=== PATIENT | male | born 1990 | race Caucasian/White ===

== ENCOUNTER → 2017-12-15 | Outpatient (REF) | payer OTHER | LOC: M SMT 13:51 | DX: Z30.09 Encounter for other general counseling and advice on contraception (principal) ==

== ENCOUNTER → 2018-11-25 | Outpatient (REF) ==
--- NOTE | 2018-11-25 11:01 | REP ---
Clinical: Right knee pain. Technique: AP, lateral, bilateral oblique and sunrise views of the right knee. Findings: Mild degenerative changes include increased sclerosis to the tibial plateau along with subtle early marginal spurring. Joint spaces appear relatively intact and normal. No acute fracture. No effusion. Impression: Mild degenerative changes. Electronically Signed by Raj Tim MD 11/25/2018 10:53 A
--- NOTE | 2018-11-25 11:33 | REP ---
LUMBOSACRAL SPINE: AP and lateral views of the lumbar spine performed with three total views obtained. No compression fracture or malalignment is seen. There is normal lumbar lordosis. Tiny spurs are seen of L1 and L5. There is slight disc space narrowing at L1-2. Questionable pars defect is seen at the L5 level on the lateral view. Mild vascular calcifications are seen of the distal abdominal aorta. IMPRESSION: Minor degenerative changes. Questionable pars defect at L5. Recommend oblique views of lumbar spine or CT to further evaluate. Electronically Signed by Chauncey Infante MD 11/25/2018 03:34 P
== END ==
LOC: M SMT 10:28
PROVIDERS: ATTEND Internal Medicine
DX: Z00.00 Encounter for general adult medical examination without abnormal findings (principal)

== ENCOUNTER → 2020-02-07 | Outpatient (REF) | payer OTHER | LOC: M SMT 16:45 | PROVIDERS: ATTEND Urology | DX: N45.1 Epididymitis (principal) ==

== ENCOUNTER 2022-11-22 09:59 | Day surgery (SDC) | payer BC, MEDICAID ==
[~2022-11-22] VITALS: Ht 160 cm; Wt 112.8 kg
[~2022-11-22 09:59] MED LIST: ASPI-226 PO; ATOR80TA59 PO; CARV12.5 PO; CARV25TA PO; LISI30TA4 PO; METF500T13 PO; TRUL10IN SC; VITA100093 PO; ceFAZolin SOD 2 GM in IV 1 EA IV ONE
[2022-11-22] MEDS ORDERED: LR 1,000 ML IV SCH ×2 (10:20→14:00)
[2022-11-22] MEDS ORDERED: MIDAZOLAM INJ 2MG/2ML VIAL As Ordered ONE (10:56)
[2022-11-22] MEDS ORDERED: propofoL 200 MG/20 ML VIAL As Ordered ONE (10:56)
[2022-11-22] MEDS ORDERED: LIDOCAINE 2% 100MG/5ML SDV (FOR ANES.) As Ordered ONE (10:56)
[2022-11-22] MEDS ORDERED: fentaNYL 100 MCG/2 ML INJECTION As Ordered ONE (10:56)
[2022-11-22] MEDS ORDERED: ONDANSETRON 4MG 2ML VIAL As Ordered ONE (10:56)
[2022-11-22] MEDS ORDERED: ISOVUE-300 61% 100ML VIAL As Ordered ONE (12:49)
[2022-11-22] MEDS ORDERED: ACETAMINOPHEN 1000MG 100ML IV BAG As Ordered ONE (13:37)
[2022-11-22] MEDS ORDERED: ceFAZolin 1GM VIAL As Ordered ONE (13:44)
[2022-11-22] MEDS ORDERED: oxyCODONE 5MG TAB PO PRN (14:00)
[2022-11-22] MEDS ORDERED: ONDANSETRON 4MG 2ML VIAL IV PRN (14:00)
[2022-11-22] MEDS ORDERED: fentaNYL 100 MCG/2 ML INJECTION IV PRN (14:00)
[2022-11-22] MEDS ORDERED: PERCOCET 5MG/325MG TAB PO PRN (14:30)
[2022-11-22 14:50] VITALS: BP 139/89; TEMP 97.2; O2SAT 96
== END 2022-11-22 15:09 | disposition home or self-care (01) ==
LOC: M SDC 09:59
PROVIDERS: ATTEND Urology
DX: N20.1 Calculus of ureter (principal); E11.9 Type 2 diabetes mellitus without complications; I10 Essential (primary) hypertension; E78.5 Hyperlipidemia, unspecified; J45.909 Unspecified asthma, uncomplicated; G47.33 Obstructive sleep apnea (adult) (pediatric); Z98.61 Coronary angioplasty status; Z79.84 Long term (current) use of oral hypoglycemic drugs; Z79.899 Other long term (current) drug therapy; Z88.5 Allergy status to narcotic agent; Z88.1 Allergy status to other antibiotic agents
CPT/HCPCS: 52005; 76000; J0131; J0690; J1100; J2250; J2405; J3010; Q9967